=== PATIENT | male | born 1985 | race Caucasian/White ===

== ENCOUNTER 2019-04-24 11:40 | Outpatient (CLI) | payer MEDICAID | END 2019-04-24 23:59 | disposition home or self-care (01) | LOC: RAD 11:40 | DX: R56.9 Unspecified convulsions (principal); R03.0 Elevated blood-pressure reading, without diagnosis of hypertension; F41.9 Anxiety disorder, unspecified; F32.9 Major depressive disorder, single episode, unspecified | CPT/HCPCS: 95819 ==